=== PATIENT | female | born 1940 | race Caucasian/White ===

== ENCOUNTER → 2018-10-07 | Outpatient (CLI) | payer MEDICARE, OTHER ==
[~2018-10-07] MED LIST: ASPI-496 PO; ASPI-515 PO; ATEN50TA41 PO; CALTRATE PO; CARI350T PO; CETI10CA PO; CLIN300C8 PO; DIAZ2TAB3 PO; DIAZ5TAB PO; DIPH25CA61 PO; HYDR2TAB29 PO; HYDR50TA3 PO; IBUP-1223 PO; LOSA100T14 PO; LOSA1TAB7 PO; METH4TAB PO; MULT-717 PO; TRAM50TA2 PO; VANC1VIA3 PO; [UNRECOGNIZED DRUG - OTHER] PO
== END | disposition home or self-care (01) ==
LOC: STAR 10:32
PROVIDERS: ATTEND Neurological Surgery
DX: Z02.9 Encounter for administrative examinations, unspecified (principal)

== ENCOUNTER 2018-10-22 05:41 | Inpatient (IN) | payer MEDICARE, OTHER ==
[~2018-10-22] VITALS: Ht 167.6 cm; Wt 85.1 kg
[2018-10-22] MEDS ORDERED: LACTATED RINGERS 1,000 ML IV SCH (06:13)
[2018-10-22] MEDS ORDERED: EPINEPHRINE 1 MG/ML, 1ML ONE (07:00)
[2018-10-22] MEDS ORDERED: BUPIVACAINE/PF 0.25% ONE (07:00)
[2018-10-22] MEDS ORDERED: THROMBIN 5,000 UNIT VIAL TP ONE (07:00)
[2018-10-22] MEDS ORDERED: BUPIVACAINE/PF-EPI 0.5% 1:200K ONE (07:00)
[2018-10-22] MEDS ORDERED: BACITRACIN 50,000 UNIT ONE (07:00)
[2018-10-22] MEDS ORDERED: FENTANYL PF 250 MCG/5ML ONE (07:12)
[2018-10-22] MEDS ORDERED: ACETAMINOPHEN 500 MG TABLET ONE (07:32)
[2018-10-22] MEDS ORDERED: VANCOMYCIN 1,000 MG ONE (07:37)
[2018-10-22] MEDS ORDERED: MIDAZOLAM 1 MG/ML, 2ML ONE (07:41)
[2018-10-22] MEDS ORDERED: PROPOFOL 10 MG/ML, 20ML ONE (07:42)
[2018-10-22] MEDS ORDERED: PROPOFOL 10 MG/ML, 50ML ONE (07:42)
[2018-10-22] MEDS ORDERED: SUCCINYLCHOLINE 20 MG/ML, 10ML ONE (07:42)
[2018-10-22] MEDS ORDERED: METOPROLOL 1 MG/ML, 5ML ONE (07:42)
[2018-10-22] MEDS ORDERED: DEXAMETHASONE 4 MG/ML, 1ML ONE (07:42)
[2018-10-22] MEDS ORDERED: ONDANSETRON 2MG/ML, 2ML ONE (07:42)
[2018-10-22] MEDS ORDERED: PROMETHAZINE 25 MG/ML, 1ML IV PRN (08:30)
[2018-10-22] MEDS ORDERED: HALOPERIDOL 5 MG/ML IV PRN (08:30)
[2018-10-22] MEDS ORDERED: ALBUTEROL SULFATE 2.5 MG/3 ML NPPB PRN (08:30)
[2018-10-22] MEDS ORDERED: hydrALAzine 20 MG/ML, 1ML IV PRN (08:30)
[2018-10-22] MEDS ORDERED: LABETALOL 5MG/ML, 20ML IV PRN (08:30)
[2018-10-22] MEDS ORDERED: DIAZEPAM 5 MG TABLET ONE (10:30)
[2018-10-22] MEDS ORDERED: FENTANYL PF 100 MCG/2ML ONE (10:30)
[2018-10-22] MEDS ORDERED: DIAZEPAM 5 MG TABLET PO ONE (11:00)
[2018-10-22] MEDS: FENTANYL PF 100 MCG/2ML IV PRN ×2 (11:01→11:18)
[2018-10-22] MEDS ORDERED: VANCOMYCIN PER PHARMACY MC PRN ×2 (12:30→15:00)
[2018-10-22] MEDS ORDERED: MAGNESIUM HYDROXIDE 8%, 30ML UDC PO PRN (12:30)
[2018-10-22] MEDS ORDERED: BISACODYL 10 MG SUPP PR PRN (12:30)
[2018-10-22] MEDS ORDERED: DIPHENHYDRAMINE 50 MG/ML, 1ML IVPush PRN (12:30)
[2018-10-22] MEDS ORDERED: PHARMACOKINETIC MONITORING MC PRN (12:30)
[2018-10-22] MEDS ORDERED: ONDANSETRON 2MG/ML, 2ML IV PRN (12:30)
[2018-10-22] MEDS ORDERED: DIPHENHYDRAMINE 25 MG CAPSULE PO PRN ×2 (12:30→18:30)
[2018-10-22] MEDS ORDERED: CETIRIZINE 10 MG TABLET PO PRN (12:30)
[2018-10-22] MEDS ORDERED: PHARMACOKINETIC CONSULTATION MC ONE (12:30)
[2018-10-22] MEDS: TIZANIDINE 2MG TABLET PO PRN ×2 (13:34→22:05)
[2018-10-22 13:35] VITALS: BP 132/75
[2018-10-22 13:35] LABS: CREATININE 0.72 mg/dL (0.55-1.02)
[2018-10-22] MEDS ORDERED: CARISOPRODOL 350 MG TABLET PO PRN (15:00)
[2018-10-22] MEDS: NS + 20MEQ KCL 1,000 ML IV SCH ×2 (16:02→22:30)
[2018-10-22 19:50] VITALS: BP 114/65
[2018-10-22] MEDS: DIAZEPAM 5 MG TABLET PO PRN (20:35)
[2018-10-22] MEDS ORDERED: TIZANIDINE 4MG TABLET ONE (21:48)
[2018-10-23 00:54] VITALS: BP 113/62
[2018-10-23 01:00] VITALS: BP 112/59
[2018-10-23] MEDS ORDERED: VANCOMYCIN 1,900 MG in SODIUM CHLORIDE 0.9% 250 ML IV SCH (01:30)
[2018-10-23 07:42] VITALS: BP 141/82
[2018-10-23] MEDS ORDERED: TIZANIDINE 4MG TABLET ONE (07:48)
[2018-10-23] MEDS: TIZANIDINE 2MG TABLET PO PRN (07:52)
[2018-10-23] MEDS: NS + 20MEQ KCL 1,000 ML IV SCH (08:30)
[2018-10-23] MEDS ORDERED: LOSARTAN 50MG TABLET PO SCH (09:00)
[2018-10-23] MEDS ORDERED: SENNA/DOCUSATE TABLET PO SCH (09:00)
[2018-10-23] MEDS ORDERED: HYDROCHLOROTHIAZIDE 25 MG TABLET PO SCH (09:00)
[2018-10-23] MEDS: DIAZEPAM 5 MG TABLET PO PRN (09:23)
[2018-10-23] MEDS ORDERED: METH4TAB2 PO (11:07)
[2018-10-23] MEDS ORDERED: TIZA2CAP2 PO (11:08)
[2018-10-23 13:00] VITALS: BP 120/65
[2018-10-24] MEDS ORDERED: CARI250T PO (01:25)
== END 2018-10-23 13:30 | disposition home or self-care (01) | DRG 471 ==
LOC: ORIP 05:41 → 4NOR 11:51 → DCLOUNGE 10-23 13:12
PROVIDERS: ADMIT Neurological Surgery; ATTEND Neurological Surgery
PROC: 0RB30ZZ Excision of Cervical Vertebral Disc, Open Approach (ICD-10-PCS; 2018-10-22)
PROC: 4A11X4G Monitoring of Peripheral Nervous Electrical Activity, Intraoperative, External Approach (ICD-10-PCS; 2018-10-22)
PROC: 0RG2070 Fusion of 2 or more Cervical Vertebral Joints with Autologous Tissue Substitute, Anterior Approach, Anterior Column, Open Approach (ICD-10-PCS; principal; 2018-10-22 07:30)
DX: M48.02 Spinal stenosis, cervical region (principal); R53.2 Functional quadriplegia; M47.12 Other spondylosis with myelopathy, cervical region; M51.36 Other intervertebral disc degeneration, lumbar region; M47.22 Other spondylosis with radiculopathy, cervical region; I10 Essential (primary) hypertension; M19.90 Unspecified osteoarthritis, unspecified site; E66.9 Obesity, unspecified; G89.29 Other chronic pain; Z98.1 Arthrodesis status; Z82.49 Family history of ischemic heart disease and other diseases of the circulatory system; Z80.9 Family history of malignant neoplasm, unspecified; Z88.6 Allergy status to analgesic agent; Z88.2 Allergy status to sulfonamides; Z88.7 Allergy status to serum and vaccine; Z88.8 Allergy status to other drugs, medicaments and biological substances; Z79.82 Long term (current) use of aspirin; Z68.30 Body mass index [BMI] 30.0-30.9, adult
CPT/HCPCS: 36415; 72040; 82565; 84520; 86850; 86900; 95938; 95941; C1713; G0378; J0171; J1100; J2250; J2405; J2704; J3010; J3370; J3480; J3490; C1762; J0330; J7050; J7120

== ENCOUNTER 2018-10-24 00:26 | Inpatient (IN) | payer MEDICARE, OTHER ==
[~2018-10-24] VITALS: Ht 167.6 cm; Wt 104.0 kg
[~2018-10-24 00:26] MED LIST changes: +METH4TAB2 PO; +TIZA2CAP2 PO
[2018-10-24] MEDS ORDERED: AMPICILLIN/SULBACTAM 3 GM in SODIUM CHLORIDE 0.9% 100 ML IV ONE (01:00)
[2018-10-24] MEDS ORDERED: VANCOMYCIN PER PHARMACY MC PRN ×2 (01:00→13:00)
[2018-10-24] MEDS ORDERED: CARI250T PO (01:25)
--- NOTE | 2018-10-24 01:28 | NUR ---
iv site started, labs drawn, provided pt with urine cup. pt to ct
[2018-10-24] MEDS ORDERED: VANCOMYCIN 1,900 MG in SODIUM CHLORIDE 0.9% 250 ML IV ONE (01:30)
--- NOTE | 2018-10-24 01:34 | NUR ---
ct on hold, pt can't lay flat.
[2018-10-24 01:39] LABS: HCT (SEDRATE) 40.5 % (34.6-47.8)
[2018-10-24 01:47] LABS: ALBUMIN 3.4 g/dL (3.4-5.0); ANION GAP 9 mmol/L (5-15); CALCIUM 8.5 mg/dL (8.5-10.1); CHLORIDE 102 mmol/L (98-107)
--- NOTE | 2018-10-24 01:52 | NUR ---
pt resting on dave, daughter at bedside, iv abx started, call light within reach.
[2018-10-24] MEDS ORDERED: KETOROLAC 30 MG/1 ML ONE ×2 (02:05→05:47)
[2018-10-24 02:09] LABS: MICROSCOPIC NOT IND
[2018-10-24 02:22] LABS: CULTURE INDICATED? NO
[2018-10-24] MEDS ORDERED: KETOROLAC 30 MG/1 ML IVPush ONE (02:30)
--- NOTE | 2018-10-24 02:37 | NUR ---
PT PLACED IN HOSPITAL BED AND AWAITING ADMIT .
[2018-10-24 02:46] LABS: BASOPHILS # (AUTO) 0.01 x10^3/uL (0-0.1); BASOPHILS % (AUTO) 0 % (0-1); EOSINOPHILS # (AUTO) 0.01 x10^3/uL (0-0.4); EOSINOPHILS % (AUTO) 0 % (1-7); LYMPHOCYTES # (AUTO) 1.39 x10^3/uL (1-3.4); LYMPHOCYTES % (AUTO) 9 % (22-44); MD NO; MEAN CORPUSCULAR HEMOGLOBIN 29.1 pg (27.0-34.8); MEAN CORPUSCULAR HGB CONC 33.8 g/dL (32.4-35.8); MEAN PLATELET VOLUME 8.5 fL (7.4-10.4); MONOCYTES # (AUTO) 0.95 x10^3/uL (0.2-0.8); MONOCYTES % (AUTO) 6 % (2-9); NEUTROPHILS % (AUTO) 84 % (42-75); PLATELET COUNT 274 x10^3/uL (130-400); RED BLOOD COUNT 4.74 x10^6/uL (3.82-5.3); RED CELL DISTRIBUTION WIDTH 13.5 % (9.6-15.2)
[2018-10-24] MEDS ORDERED: SODIUM CHLORIDE 0.9% 1,000 ML IV ONE (02:59)
[2018-10-24] MEDS ORDERED: ONDANSETRON 2MG/ML, 2ML IVPush PRN ×2 (03:00→09:00)
[2018-10-24] MEDS ORDERED: SODIUM CHLORIDE FLUSH 10ML SYR IVF PRN (03:00)
--- NOTE | 2018-10-24 03:07 | NUR ---
PT'S DAUGHTER STOPPED ME IN HALLWAY, STATED HER MOTHER "DID IT AGAIN", SAID HER MOTHER COUGHED AND IS NOT BREATHING, ON ASSESSMENT NOTED PT SITTING UP IN BED, SPO2-98% ON 2L N/C, RR-22, NADN, RESPIRATIONS EVEN AND UNLABORED. ERP UPDATED ON EVENT AND PT STATUS. WEB OPERATIONS ADMINISTRATOR AT PT'S BEDSIDE
--- NOTE | 2018-10-24 04:18 | NUR ---
pt resting calmly, iv fluids infusing, daughter at bedside, siderails up x2, calll light within reach. awaiting room for transfer
--- NOTE | 2018-10-24 04:37 | NUR ---
PT SITTING UP IN BED, ADMIT MD AT BEDSIDE FOR EVAL.
--- NOTE | 2018-10-24 05:55 | NUR ---
PT;S DAUGHTER AT NURSES STATION STATED " I CALLED 1/2 HOUR AGO AND NO ONE HAS ANSWERED", FOUND CALL LIGHT UNDER HER PILLOW AND LIGHT IS NOT ON. ASSISTED PT TO RR VIA W/C, TOLERATED TRANSFER WITHOUT DIFFICULTY. PT C/O ABD PAIN REQUESTING MORE PAIN MEDICATION, ERP UPDATED ORDER RECEIVED, PT MEDICATED PER NOV, PT NOW RESTING IN BED, SIDERAILS UP X2, CALL LIGHT WITHIN REACH, DENIES FURTHER NEEDS AT THIS TIME.
[2018-10-24] MEDS ORDERED: KETOROLAC 30 MG/1 ML IVPush SCH (06:00)
--- NOTE | 2018-10-24 07:08 | NUR ---
report given to ace camacho
--- NOTE | 2018-10-24 07:15 | NUR ---
RECEIVED REPORT AND ASSUMED CARE. PT. IS RESTING WITHOUT CONCERNS.
--- NOTE | 2018-10-24 08:00 | NUR ---
RN CALLED TO THE PT.'S ROOM. PT. WAS ASSISTED TO THE RESTROOM. DR. DAVIS IS AT THE BEDSIDE.
--- NOTE | 2018-10-24 08:05 | NUR ---
PT.'S DAUGHTER STATES PT. HAS BEEN TO THE RESTROOM IN HOURS OR HAD MEDICATION. PT. WAS TAKEN TO THE RESTROOM AT 650 BY IVETTE ART. PT.'S DAUGHTER STATES PT. HAS NOT HAD PAIN MEDICATION IN 4 HOURS. PT. DAUGHTER WAS INFORMED THAT PT.'S LAST PAIN MEDICATION WAS GIVEN AT 549. CESAR BENITES AND CESAR FU AT THE BEDSIDE DISCUSSING A PLAN OF CARE WITH THE PT. AND HER DAUGHTER. PT. IS INSISTING THAT SHE NEEDS TO EAT AND DRINK AFTER BEING EDUCATED THAT SHE IS AN ASPIRATION RISK AND IS NPO. PT. IS REFUSING TREATMENT AND A SWALLOW EVALUATION AFTER BEING EDUCATED OF THEIR IMPORTANCE. PT. AND FAMILY ARE DEMANDING MEDICATIONS THAT THE PROVIDERS ARE NOT ORDERING BECAUSE THEY ARE ORAL MEDICATIONS. PT. AND DAUGHTER CONTINUE TO INSIST ON THE MEDICATIONS. DISCUSSED THE SITUATION WITH CLAIM BENEFIT SPECIALIST
[2018-10-24] MEDS ORDERED: METHOCARBAMOL 750 MG in DEXTROSE 5% 100 ML IV ONE (09:00)
[2018-10-24] MEDS ORDERED: BISACODYL 10 MG SUPP PR PRN (09:00)
[2018-10-24] MEDS ORDERED: ACETAMINOPHEN 1,000 MG/100 ML IV IVPB PRN (09:00)
[2018-10-24] MEDS ORDERED: ENALAPRILAT 1.25 MG/ML, 2ML IVPush PRN (09:00)
[2018-10-24] MEDS ORDERED: DIPHENHYDRAMINE 50 MG/ML, 1ML IVPush PRN (09:00)
[2018-10-24] MEDS ORDERED: ACETAMINOPHEN 50 ML IVPB ONE (10:00)
[2018-10-24] MEDS: AMPICILLIN/SULBACTAM 3 GM in SODIUM CHLORIDE 0.9% 100 ML IV SCH ×3 (10:33→23:18)
[2018-10-24] MEDS ORDERED: POTASSIUM CHLORIDE 20 MEQ in SODIUM CHLORIDE 0.9% 250 ML IV ONE (10:50)
--- NOTE | 2018-10-24 11:36 | NUR ---
PT. REPORT WAS CALLED TO [facility]. PT. IS READY FOR TRANSFER.
[2018-10-24 12:07] VITALS: BP 147/75
[2018-10-24 12:15] VITALS: BP 147/75
[2018-10-24] MEDS: SODIUM CHLORIDE 0.9% 1,000 ML IV SCH (12:25)
[2018-10-24] MEDS ORDERED: PHARMACOKINETIC CONSULTATION MC ONE (13:00)
[2018-10-24] MEDS ORDERED: PHARMACOKINETIC MONITORING MC PRN (13:00)
--- NOTE | 2018-10-24 15:55 | NUR ---
Chopped diet with nectar thick liquids. [place] sheet placed on patient's whiteboard with swallow precautions and strategies. Addendum: 10/24/18 at 1606 by TYRONE FISHMAN Amended: Links added.
[2018-10-24] MEDS ORDERED: METHOCARBAMOL 750 MG in DEXTROSE 5% 100 ML IV PRN (16:00)
[2018-10-24 18:42] VITALS: BP 131/81
[2018-10-25 00:10] VITALS: BP 137/75
[2018-10-25] MEDS ORDERED: VANCOMYCIN 1,900 MG in SODIUM CHLORIDE 0.9% 250 ML IV SCH (02:00)
[2018-10-25 05:28] LABS: BASOPHILS # (AUTO) 0.03 x10^3/uL (0-0.1); BASOPHILS % (AUTO) 0 % (0-1); EOSINOPHILS # (AUTO) 0.06 x10^3/uL (0-0.4); EOSINOPHILS % (AUTO) 1 % (1-7); HCT (SEDRATE) 38.2 % (34.6-47.8); LYMPHOCYTES # (AUTO) 2.26 x10^3/uL (1-3.4); LYMPHOCYTES % (AUTO) 18 % (22-44); MD NO; MEAN CORPUSCULAR HGB CONC 33.3 g/dL (32.4-35.8); MEAN CORPUSCULAR VOLUME 87.1 fL (80-100); MEAN PLATELET VOLUME 8.3 fL (7.4-10.4); MONOCYTES # (AUTO) 0.88 x10^3/uL (0.2-0.8); MONOCYTES % (AUTO) 7 % (2-9); NEUTROPHILS # (AUTO) 9.67 x10^3/uL (1.8-6.8); NEUTROPHILS % (AUTO) 75 % (42-75); PLATELET COUNT 266 x10^3/uL (130-400); RED BLOOD COUNT 4.39 x10^6/uL (3.82-5.3); RED CELL DISTRIBUTION WIDTH 13.9 % (9.6-15.2)
[2018-10-25 05:37] LABS: ANION GAP 5 mmol/L (5-15); CALCIUM 8.9 mg/dL (8.5-10.1); CHLORIDE 108 mmol/L (98-107)
[2018-10-25] MEDS: AMPICILLIN/SULBACTAM 3 GM in SODIUM CHLORIDE 0.9% 100 ML IV SCH ×4 (05:42→23:44)
[2018-10-25] MEDS: SODIUM CHLORIDE 0.9% 1,000 ML IV SCH ×2 (05:42→20:00)
[2018-10-25 06:29] VITALS: BP 116/70
[2018-10-25] MEDS ORDERED: POTASSIUM CHLORIDE 10% 40 MEQ/30 ML UDC PO ONE ×2 (09:00→13:00)
[2018-10-25] MEDS: HYDROCHLOROTHIAZIDE 25 MG TABLET PO SCH (09:52)
[2018-10-25] MEDS: LOSARTAN 50MG TABLET PO SCH (09:52)
[2018-10-25] MEDS ORDERED: methylPREDNISolone 4mg DOSE PACK PO SCH (10:00)
[2018-10-25] MEDS ORDERED: methylPREDNISolone 4mg DOSE PACK ONE (10:33)
[2018-10-25 13:44] VITALS: BP 112/69
[2018-10-25 18:27] VITALS: BP 120/76
[2018-10-26 00:07] VITALS: BP 126/74
[2018-10-26] MEDS: AMPICILLIN/SULBACTAM 3 GM in SODIUM CHLORIDE 0.9% 100 ML IV SCH (05:51)
[2018-10-26 07:21] VITALS: BP 145/81
[2018-10-26] MEDS: HYDROCHLOROTHIAZIDE 25 MG TABLET PO SCH (08:19)
[2018-10-26] MEDS: LOSARTAN 50MG TABLET PO SCH (08:20)
[2018-10-26 08:29] LABS: BASOPHILS # (AUTO) 0.04 x10^3/uL (0-0.1); BASOPHILS % (AUTO) 0 % (0-1); EOSINOPHILS # (AUTO) 0.14 x10^3/uL (0-0.4); EOSINOPHILS % (AUTO) 1 % (1-7); LYMPHOCYTES # (AUTO) 1.68 x10^3/uL (1-3.4); LYMPHOCYTES % (AUTO) 17 % (22-44); MD NO; MEAN CORPUSCULAR HEMOGLOBIN 28.3 pg (27.0-34.8); MEAN CORPUSCULAR HGB CONC 32.9 g/dL (32.4-35.8); MEAN CORPUSCULAR VOLUME 86.2 fL (80-100); MEAN PLATELET VOLUME 7.7 fL (7.4-10.4); MONOCYTES # (AUTO) 0.58 x10^3/uL (0.2-0.8); MONOCYTES % (AUTO) 6 % (2-9); NEUTROPHILS # (AUTO) 7.46 x10^3/uL (1.8-6.8); NEUTROPHILS % (AUTO) 75 % (42-75); PLATELET COUNT 288 x10^3/uL (130-400); RED BLOOD COUNT 4.47 x10^6/uL (3.82-5.3)
[2018-10-26 08:33] LABS: ANION GAP 6 mmol/L (5-15); CALCIUM 8.7 mg/dL (8.5-10.1); CHLORIDE 105 mmol/L (98-107); CREATININE 0.59 mg/dL (0.55-1.02)
[2018-10-26] MEDS: SODIUM CHLORIDE 0.9% 1,000 ML IV SCH (09:34)
[2018-10-26] MEDS ORDERED: AMOX1TAB12 PO (11:12)
[2018-10-26] MEDS ORDERED: AMOXICILLIN/CLAV 875-125MG TABLET PO SCH (11:30)
[2018-10-26] MEDS ORDERED: METHOCARBAMOL 750 MG TABLET PO PRN (11:30)
== END 2018-10-26 13:10 | disposition home or self-care (01) | DRG 862 ==
LOC: ED 00:59 → EDIP 02:58 → 3NW 11:47 → DCLOUNGE 10-26 12:58
PROVIDERS: ADMIT Neurological Surgery; ATTEND Neurological Surgery
DX: T81.40XA Infection following a procedure, unspecified, initial encounter (principal); J69.0 Pneumonitis due to inhalation of food and vomit; L03.221 Cellulitis of neck; J98.11 Atelectasis; J02.9 Acute pharyngitis, unspecified; E87.6 Hypokalemia; G89.29 Other chronic pain; I10 Essential (primary) hypertension; M19.90 Unspecified osteoarthritis, unspecified site; Z91.19 Patient's noncompliance with other medical treatment and regimen; Z98.1 Arthrodesis status; Y83.8 Other surgical procedures as the cause of abnormal reaction of the patient, or of later complication, without mention of misadventure at the time of the procedure; Y92.89 Other specified places as the place of occurrence of the external cause; Z88.6 Allergy status to analgesic agent; Z88.2 Allergy status to sulfonamides; Z88.8 Allergy status to other drugs, medicaments and biological substances
CPT/HCPCS: 36415; 71045; 76536; 80048; 81003; 82040; 83735; 84100; 85025; 85651; 86140; 87040; 96361; 96365; 96366; 96367; 96375; 96376; G0378; J0131; J0295; J1885; J3370; J3480; J7509; J2800; J7030; J7050